=== PATIENT | male | born 1985 | race Caucasian/White ===

== ENCOUNTER 2019-03-19 13:32 | Emergency (ER) | payer MEDICAID, OTHER ==
[~2019-03-19] VITALS: Ht 175.3 cm; Wt 93.0 kg
[2019-03-19 15:01] VITALS: BP 151/82
== END 2019-03-19 15:55 | disposition home or self-care (01) ==
LOC: ER 13:45
DX: S91.332A Puncture wound without foreign body, left foot, initial encounter (principal); X58.XXXA Exposure to other specified factors, initial encounter; Y93.39 Activity, other involving climbing, rappelling and jumping off; Y92.89 Other specified places as the place of occurrence of the external cause; Y99.8 Other external cause status
CPT/HCPCS: 73630

== ENCOUNTER 2022-09-09 09:46 | Emergency (ER) | payer MEDICAID ==
[~2022-09-09] VITALS: Ht 175.3 cm; Wt 90.0 kg
[2022-09-09 11:18] VITALS: BP 154/91
[2022-09-09] MEDS ORDERED: ACET-1080 PO (11:18)
[2022-09-09] MEDS ORDERED: BACDST PO (11:18)
[2022-09-09] MEDS ORDERED: cefTRIAXone SOD 1,000 MG VL IM ONE (11:30)
[2022-09-09] MEDS ORDERED: AZITHROMYCIN 250 MG TAB PO ONE (11:30)
== END 2022-09-09 11:39 | disposition home or self-care (01) ==
LOC: ER 09:46
DX: S60.461A Insect bite (nonvenomous) of left index finger, initial encounter (principal); Z88.6 Allergy status to analgesic agent; Z20.2 Contact with and (suspected) exposure to infections with a predominantly sexual mode of transmission; W57.XXXA Bitten or stung by nonvenomous insect and other nonvenomous arthropods, initial encounter; Y93.89 Activity, other specified; Y92.89 Other specified places as the place of occurrence of the external cause; Y99.8 Other external cause status
CPT/HCPCS: 96372; 99283; J0696